=== PATIENT | male | born 1985 | race African-American/Black ===

== ENCOUNTER 2025-03-19 16:46 | Inpatient (IN) | payer OTHER ==
[~2025-03-19] VITALS: Ht 182.9 cm; Wt 105.0 kg
[2025-03-19 16:48] VITALS: TEMP 97.7; O2SAT 90
[2025-03-19] MEDS ORDERED: SODIUM CHLORIDE 0.9% 1,000 ML IV ONE (17:00)
[2025-03-19] MEDS ORDERED: NOREPINEPHRINE 8MG/250ML PMX 250 ML IV PRN (17:00)
[2025-03-19] MEDS ORDERED: IODIXANOL 320MG/ML 100 ML BOTTLE IV ONE (17:11)
[2025-03-19] MEDS ORDERED: LIDOCAINE HCL 1% 20ML VIAL ONE ×2 (17:11→17:18)
[2025-03-19] MEDS ORDERED: HEPARIN 1000 UNITS/ML 10ML ONE (17:11)
[2025-03-19] MEDS ORDERED: MIDAZOLAM HCL 2 MG/2 ML VIAL ONE (17:18)
[2025-03-19] MEDS ORDERED: FENTANYL CITRATE/PF 50MCG/ML 2ML VIAL ONE (17:18)
[2025-03-19 17:20] VITALS: BP 44/23; PULSE 44; PULSE 50; RESP 20; O2SAT 75
[2025-03-19] MEDS ORDERED: VASOPRESSIN 20 UNIT in SODIUM CHLORIDE 0.9% 99 ML IV PRN (17:30)
[2025-03-19] MEDS ORDERED: ASPIRIN 300MG SUPP PR ONE (17:30)
[2025-03-19] MEDS ORDERED: TENECTEPLASE 50MG/VIAL (FOR MI OR PE) IV SCH (17:30)
[2025-03-19 17:35] VITALS: RESP 20
[2025-03-19] MEDS ORDERED: ATROPINE SULFATE 1MG/10ML SYR ONE (17:35)
[2025-03-19] MEDS ORDERED: SODIUM BICARBONATE 8.4% 50MEQ/50ML SYR IV ONE (17:50)
[2025-03-19] MEDS ORDERED: ASPIRIN 325MG TABLET PO ONE (18:00)
[2025-03-19 18:22] LABS: BG BASE EXCESS -22.0 mmol/L (-2.0-3.0); BG CARBOXYHEMOGLOBIN 0.3 % (0.5-1.5); BG DEOXYHEMOGLOBIN 86.6 % (0.0-5.0); BG HCO3 ACT 13.2 mmol/L (21.0-28.0); BG METHEMOGLOBIN 2.1 % (0.5-1.5); BG OXYGEN SATURATION 0.0 % (94.0-98.0); BG OXYHEMOGLOBIN 11.0 % (94.0-98.0); BG PCO2 94.4 mmHg (35.0-48.0); BG PH 6.763 (7.350-7.450); BG PO2 20.1 mmHg (83.0-108.0); BG SAMPLE SITE VBG - N/A; BG TOTAL HEMOGLOBIN 9.9 g/dL (13.5-17.5); BG VENT MODE VBG - N/A
[2025-03-19] MEDS ORDERED: EPINEPHRINE 0.1MG/ML (1:10,000) 10ML SYR ONE (18:24)
[2025-03-19] MEDS ORDERED: CLONIDINE 0.1MG TABLET PO PRN (19:45)
[2025-03-19] MEDS ORDERED: ONDANSETRON HCL 4MG/2ML INJ IV PRN (19:45)
[2025-03-19] MEDS ORDERED: GUAIFENESIN 200MG/10ML SUGAR FREE UDC PO PRN (19:45)
[2025-03-19] MEDS ORDERED: IPRATROPIUM/ALBUTEROL 0.5-3(2.5)MG/3ML NEB HHN PRN (19:45)
[2025-03-19] MEDS ORDERED: MAGNESIUM/ALUMINUM HYDROXIDE/SIMETHICONE 30ML UDC PO PRN (19:45)
[2025-03-19] MEDS ORDERED: DOCUSATE SODIUM 100MG CAPSULE PO PRN (19:45)
[2025-03-19] MEDS ORDERED: ACETAMINOPHEN 325MG TABLET PO PRN ×2 (19:45)
[2025-03-20] MEDS ORDERED: PANTOPRAZOLE SODIUM 40 MG/VIAL IV SCH (09:00)
== END 2025-03-19 22:30 ==
LOC: ER 16:46 → CVICU 18:57
PROVIDERS: ADMIT Hospitalist; ATTEND Hospitalist
PROC: 5A12012 Performance of Cardiac Output, Single, Manual (ICD-10-PCS; principal; 2025-03-19)
PROC: 0BH17EZ Insertion of Endotracheal Airway into Trachea, Via Natural or Artificial Opening (ICD-10-PCS; 2025-03-19)
PROC: 5A1935Z Respiratory Ventilation, Less than 24 Consecutive Hours (ICD-10-PCS; 2025-03-19)
PROC: 3E03317 Introduction of Other Thrombolytic into Peripheral Vein, Percutaneous Approach (ICD-10-PCS; 2025-03-19)
DX: I21.19 ST elevation (STEMI) myocardial infarction involving other coronary artery of inferior wall (principal); G92.8 Other toxic encephalopathy; J96.01 Acute respiratory failure with hypoxia; I46.9 Cardiac arrest, cause unspecified; E87.20 Acidosis, unspecified; E78.00 Pure hypercholesterolemia, unspecified; Z82.41 Family history of sudden cardiac death; Z82.49 Family history of ischemic heart disease and other diseases of the circulatory system
CPT/HCPCS: 31500; 36600; 82375; 82805; 85347; 92950; 92953; 93005; 94002; 94070; 94664; 99291; 99292; C1769; C1887; C1893; J0461; J1644; J2003; J2250; J3010; J3101; J3490; J7030; J7050; Q9967